=== PATIENT | male | born 1995 ===

== ENCOUNTER 2020-05-27 12:40 | Outpatient (CLI) | payer OTHER ==
[2020-05-27 13:38] VITALS: BP 106/69
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
== END 2020-05-27 12:41 | disposition home or self-care (01) ==
LOC: SC 12:40
PROVIDERS: ATTEND Nurse Practitioner Family
DX: R06.83 Snoring (principal); G47.8 Other sleep disorders; R41.89 Other symptoms and signs involving cognitive functions and awareness; G47.10 Hypersomnia, unspecified; E66.9 Obesity, unspecified; Z68.32 Body mass index [BMI] 32.0-32.9, adult
CPT/HCPCS: 99203; 99212

== ENCOUNTER 2020-06-14 07:43 | Outpatient (CLI) | payer OTHER | END 2020-06-14 07:44 | disposition home or self-care (01) | LOC: SC 07:43 | PROVIDERS: ATTEND Nurse Practitioner Family | DX: G47.33 Obstructive sleep apnea (adult) (pediatric) (principal); E66.9 Obesity, unspecified; Z68.32 Body mass index [BMI] 32.0-32.9, adult | CPT/HCPCS: 95806 ==

== ENCOUNTER 2020-06-16 07:42 | Outpatient (CLI) | payer OTHER ==
--- NOTE | 2020-06-16 08:12 | SLEEP CARE CONSULTATION ---
Information from patient questionnaire entered by Sherry Doshi. I have reviewed and concur with the information entered by Sherry Doshi. This document represents the service I personally performed and the decisions made by , Lisseth Chaudhary ARNP. History of Present Illness Service Date and Time: 06/16/2020 0742 Initial [place] Sleepiness Scale score: 14 (in 2020) Current [place] Sleepiness Scale score: 12 Additional HPI information: EMILY MCKEON returns for follow up and results of the recently performed home sleep study. He was found to have mild obstructive sleep apnea with an average AHI of 8.5 and aileen or 89%. I explained the pathophysiology behind obstructive sleep apnea. We then spent quite a bit of time discussing different treatment options. For mild obstructive sleep apnea, surgery and oral appliance are alternatives to nasal CPAP therapy but in moderate or severe cases, nasal CPAP is the most effective and reliable treatment. Because apnea is primarily in supine position, then positional management therapy could be effective. Methods discussed such as positioning with pillows, using a T-shirt with tennis balls in the back, and shown commercial products that have a pillow format on back to prevent supine sleep. I reviewed the impact of weight changes on sleep apnea and strongly recommended losing weight. After some discussion, the patient opted to go with the nasal CPAP therapy. Nasal autoCPAP set at 4-15 cmH20 will be ordered with rationale explained. A manual titration study will be ordered if unable to find optimal pressure with office adjustments. I explained how CPAP machine works with sample devices [employer] Dreamstation and [id number] and what to expect when using the machine. Using CPAP every night in order to get used to it was emphasized. Patient advised to put CPAP mask on before getting into bed so as not to fall asleep without CPAP. To assist acclimation to CPAP use, it could also be used for a short time during day while reading or watching TV. The patient was instructed to call the CPAP supplier to discuss any mechanical problem that may occur. If the mask given is uncomfortable or is difficult to keep on through the night even with adjustment, contact the CPAP supplier as many will replace with another mask style if notified before 30 days. If snoring or perceives is not getting enough air or too much air from the machine, notify this office. [facility]AS patient education PAP tips reviewed and given to patient. Patient does not drink alcohol. Patient was cautioned about risks of drowsy driving until sleepiness symptoms resolve. Sleep Study - Results Type of Sleep Study: Home sleep study Prior sleep studies: No Polysomnography/Home Sleep Study results: Physician Impression: The quality of the study is good. The length of the study is adequate (> 240 minutes). Please also see the tabulated and graphic data. 1. Obstructive Sleep Apnea-Hypopnea (ICD-10 G47.33), mild, with an AHI of 8.5/hr and aileen SaO2 of 89%. During the study, the patient had 29 apneas (29 obstructive, 0 central, 0 mixed) and 51 hypopneas. The longest episode lasted 58.5 seconds. The respiratory events occurred more frequently during supine sleep (supine AHI was 21.6 and non-supine, 6.66). 2. Hypoxemia (ICD-10 R09.02), minimal, with the lowest oxygen saturation of 89 % and 0.3 minutes with SaO2 under 90%. Baseline oxygen saturation was normal (Average oxygen saturation was 95%). Allergies and Home Medications Drug allergies reviewed: Yes (NKDA) Home medication list reviewed: Yes (muscle relaxers, ibuprofen) Review of Systems Review of systems same as previous: Yes (no changes) Physical Exam Heart Rate: 75 O2 Saturation: 98 Height: 5 ft 10 in Weight: 221 lb Body Mass Index: 31.7 BMI Classification: Obese Impression and Plan 1. Obstructive Sleep Apnea-Hypopnea Syndrome, mild, with lowest oxygen saturation of 89%. Obviously this is the cause of the patients symptoms of unrefreshed sleep, and excessive daytime sleepiness. Positive pressure therapy could benefit his overall health and reduce risks for cardiovascular or cerebrovascular adverse events. As mentioned above, the patient will be started on nasal autoCPAP therapy with pressure set at 4-15 cmH2O. A manual titration study will be completed if unable to find optimal treatment pressure with office adjustments. Compliance guidelines also reviewed. A copy of compliance guidelines will be given for reference at check out. Because the apnea is more severe supine, I instructed to avoid sleeping supine using pillow positioning until able to start CPAP use. * Nasal auto CPAP therapy, pressure at 4-15 cm H2O. * Attempt to lose weight. * Avoid supine sleep until using CPAP. * The patient is again cautioned about driving until sleepiness completely resolves. * Return one month after CPAP obtained. I will assess response to therapy and compliance at that time. Counseling Topics: Weight loss health impact Visit Type: In Office Time Spent with Patient (minutes): 20 Provider Statement: I spent 100% of the Face to Face Visit with the patient with greater than 50% spent counseling the patient and coordination of care.
== END 2020-06-16 07:43 | disposition home or self-care (01) ==
LOC: SC 07:42
PROVIDERS: ATTEND Nurse Practitioner Family
DX: G47.33 Obstructive sleep apnea (adult) (pediatric) (principal); E66.9 Obesity, unspecified; Z68.31 Body mass index [BMI] 31.0-31.9, adult
CPT/HCPCS: 99212; 99213

== ENCOUNTER 2020-08-17 10:12 | Outpatient (CLI) | payer OTHER ==
--- NOTE | 2020-08-17 10:59 | SLEEP CARE CONSULTATION ---
Information from patient questionnaire entered by Sherry Doshi. I have reviewed and concur with the information entered by Sherry Doshi. This document represents the service I personally performed and the decisions made by , Lisseth Chaudhary ARNP. History of Present Illness Service Date and Time: 08/17/2020 1012 Previous diagnosis: Mild, Obstructive Sleep Apnea-Hypopnea Syndrome AHI: 8.5 (in 2020) Reason for follow up: first compliance Equipment type: CPAP Equipment obtained from: [employer] (got initial supplies) Mask style: Nasal Backup mask available: Yes (extra masks) Last cushion change: 2 weeks Prior sleep studies: Yes Year and Where: 2020 - [facility] Type of Sleep Study: Home sleep study HPI additional information: PARISH MCKEON was diagnosed to have mild, AHI 8.5, obstructive sleep apnea- hypopnea syndrome and returned today for CPAP therapy first compliance follow- up. CPAP Compliance Data - Data Reviewed with Patient Average duration of nightly device use: 6 hr 34 min Compliance rate %: 96.7 Current pressure setting (cmH2O): 4-15 (mean 5.5, 90% avg 7.8) Humidity settin Heated hose settin Average residual AHI: 2.5 Average large leak: 0 Subjective Missed days of use due to: reports: mask issues, other Patient concerns: reports: mask discomfort (sore under his right nare), dry m outh, nose, throat (dry nose), other (skin acne under nares). denies: aerophagia, air blowing in eyes, mask leak noise, condensation in mask/hose, nasal congestion, epistaxis Observed to snore while using device: No Current pressure setting perceived as: comfortable On therapy, patient: reports: sleeping better, awakening more refreshed, being more awake and alert during the day, more rested overall. denies: drowsiness while driving Initial [place] Sleepiness Scale score: 14 (in 2020) Current [place] Sleepiness Scale score: 8 Allergies and Home Medications Home medication list reviewed: Yes (no new meds) Review of Systems Review of systems same as previous: Yes (no changes) Physical Exam Heart Rate: 79 O2 Saturation: 98 Height: 5 ft 10 in Weight: 225 lb Body Mass Index: 32.3 BMI Classification: Obese Impression and Plan 1. Obstructive Sleep Apnea-Hypopnea Syndrome, mild, with good treatment compliance and good apnea control. On CPAP therapy, the patient has better sleep quality and is more rested overall. Parish has been having some mask discomfort from the nasal cushion mask and would like to try a full face style. He is getting some dry nose passages, skin acne around nose and had a sore develop under the right nare. It has healed up now but did limit use for a couple of nights. He has tried to increase the humidity with limited improvement of his nasal dryness. I will have them do a mask refitting for a full face mask and we discussed use of the humidity and heated hose for nasal dryness. Nasal dryness can be reduced with increasing the CPAP humidity as shown on sample device and the heated hose can be increased if condensation. I will adjust his pressure to reflect pressure being used to 5-8 cmH2O. He is very happy with treatment thus far. He was encouraged to work on weight loss. He has a 2 week old infant. Patient's apnea severity and rationale for treatment to reduce apnea, improve sleep quality and reduce cardiovascular and cerebrovascular events was reviewed. * Mask refitting for full face mask * Changeauto CPAP pressure to 5-8 cmH2O * Notify me if snoring with mask or feeling that the pressure is too much or too little * Attempt to lose weight * Call this office if any problems using CPAP * Return for follow up in 1-2 months, or sooner if concerns arise Counseling Topics: Spare mask, Weight loss health impact Visit Type: In Office Time Spent with Patient (minutes): 23 Provider Statement: I spent 100% of the Face to Face Visit with the patient with greater than 50% spent counseling the patient and coordination of care.
== END 2020-08-17 10:13 | disposition home or self-care (01) ==
LOC: SC 10:12
PROVIDERS: ATTEND Nurse Practitioner Family
DX: G47.33 Obstructive sleep apnea (adult) (pediatric) (principal); E66.9 Obesity, unspecified; Z68.32 Body mass index [BMI] 32.0-32.9, adult
CPT/HCPCS: 99212; 99213

== ENCOUNTER 2020-09-17 07:51 | Outpatient (CLI) | payer OTHER ==
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
== END 2020-09-17 07:52 | disposition home or self-care (01) ==
LOC: SC 07:51
PROVIDERS: ATTEND Nurse Practitioner Family
DX: G47.33 Obstructive sleep apnea (adult) (pediatric) (principal); E66.9 Obesity, unspecified; Z68.30 Body mass index [BMI] 30.0-30.9, adult
CPT/HCPCS: 99212

== ENCOUNTER 2020-12-24 10:08 | Outpatient (CLI) | payer OTHER ==
--- NOTE | 2020-12-24 11:10 | SLEEP CARE CONSULTATION ---
Information from patient questionnaire entered by Urvashi Martin. I have reviewed and concur with the information entered by Urvashi Martin. This document represents the service I personally performed and the decisions made by , Lisseth Chaudhary ARNP. History of Present Illness Service Date and Time: 12/24/2020 1008 Previous diagnosis: Mild, Obstructive Sleep Apnea-Hypopnea Syndrome AHI: 8.5 Reason for follow up: three month (pressure change and CPAP recall) Equipment type: CPAP Equipment obtained from: [employer] (very hard to get ahold this LIA, no call backs to his phone call) Mask style: Nasal Backup mask available: Yes (old mask) Last cushion change: 3 weeks Prior sleep studies: Yes Year and Where: 2020 - [facility] Type of Sleep Study: Home sleep study HPI additional information: EMILY MCKEON was diagnosed to have mild, AHI 8.5, obstructive sleep apnea- hypopnea syndrome and returned today for CPAP therapy three month with pressure change follow-up. Sleep Study - Results Type of Sleep Study: Home sleep study Prior sleep studies: Yes Year and Where: 2020 - [facility] CPAP Compliance Data - Data Reviewed with Patient Average duration of nightly device use: 6 hours 25 minutes Compliance rate %: 77.8 Current pressure setting (cmH2O): 5-8 Heated hose settin Average residual AHI: 1.9 Average large leak: 10 second Subjective Patient concerns: reports: dry mouth, nose, throat (dry nose; he does not like using the humidifier, turned off), other (discuss CPAP recall). denies: aerophagia, mask discomfort, air blowing in eyes, mask leak noise, condensation in mask/hose, nasal congestion, epistaxis Observed to snore while using device: No Current pressure setting perceived as: too low On therapy, patient: reports: sleeping better, awakening more refreshed, being more awake and alert during the day, more rested overall. denies: drowsiness while driving Initial [place] Sleepiness Scale score: 14 (in 2020) Current [place] Sleepiness Scale score: 13 Allergies and Home Medications Home medication list reviewed: Yes (no changes) Review of Systems Review of systems same as previous: Yes (no changes) Physical Exam Blood Pressure: 118/69 Cuff size: wrist Heart Rate: 80 O2 Saturation: 98 Height: 5 ft 10 in Weight: 223 lb Body Mass Index: 32.0 BMI Classification: Obese Impression and Plan 1. Obstructive Sleep Apnea-Hypopnea Syndrome, mild, with good treatment complia nce and good apnea control. On CPAP therapy, the patient has better sleep quality and is more rested overall. Patient has a Dreamstation. He has insurance which will support getting a replacement device for his SARAH. Patient was encouraged to register their device online with [employer] for the recall to see if their device is affected. If their device is affected they should start a claim. Patient denies any black particles seen in machine or hoses, any unusual odors coming from device. Patient has not experienced any physical symptoms such as upper airway irritation, headache, skin or eye irritation, asthma, nausea/vomiting, difficulty breathing or chest pain. Patient informed that they may use an inline CPAP filter that they can obtain online to reduce chance of any particles being inhaled or ingested. We discussed thoroughly the health risks of not using the CPAP versus continuing use with the filter in place. If patient is not able to sleep due to waking up choking, gasping for air or other respiratory distress that they may decide to continue using it until it is either replaced or repaired. Patient voiced understanding and agreement with plan. He has been having dry nose with dry mucus with use. He does not like using the humidifier. Nasal dryness can be reduced with increasing the CPAP humidity as shown on sample device and the heated hose can be increased if condensation. In addition, I gave the patient a few samples of Xu Ease nasal cream to be used 4 times a day for 7-10 days and then as needed. Printed information given about the product and how to obtain more. Patient's apnea severity and rationale for treatment to reduce apnea, improve sleep quality and reduce cardiovascular and cerebrovascular events was reviewed. Patient was encouraged to lose weight for their overall health and to reduce apneas. * Change auto CPAP pressure to 6-8 cmH2O * Replacement device for recalled machine ordered, insurance * Notify me if snoring with mask or feeling that the pressure is too much or too little * Attempt to lose weight * Call this office if any problems using CPAP * Return for follow up in 6 months, or sooner if concerns arise Counseling Topics: Spare mask, Weight loss health impact Visit Type: In Office Time Spent with Patient (minutes): 22 Provider Statement: I spent 100% of the Face to Face Visit with the patient with greater than 50% spent counseling the patient and coordination of care.
[2020-12-24 11:11] VITALS: BP 118/69
== END 2020-12-24 10:09 | disposition home or self-care (01) ==
LOC: SC 10:08
PROVIDERS: ATTEND Family Medicine
DX: G47.33 Obstructive sleep apnea (adult) (pediatric) (principal); E66.9 Obesity, unspecified; Z68.32 Body mass index [BMI] 32.0-32.9, adult
CPT/HCPCS: 99212; 99213

== ENCOUNTER 2021-03-11 12:41 | Outpatient (CLI) | payer OTHER ==
[2021-03-11 13:23] VITALS: BP 127/81
--- NOTE | 2021-03-11 13:23 | SLEEP CARE CONSULTATION ---
Information from patient questionnaire entered by Sha Teague MA. I have reviewed and concur with the information entered by Sha Teague MA. This document represents the service I personally performed and the decisions made by , Lisseth Chaudhary ARNP. History of Present Illness Service Date and Time: 03/11/2021 1241 Previous diagnosis: Mild, Obstructive Sleep Apnea-Hypopnea Syndrome AHI: 8.5 Reason for follow up: other (TWO MONTH F/U VISIT) Equipment type: CPAP Equipment obtained from: [employer] (has not gotten supplies yet, has changed his address with them and not heard back yet) Mask style: Nasal Backup mask available: Yes (other mask) Last cushion change: 2 weeks Prior sleep studies: Yes Year and Where: 2020 - [facility] Type of Sleep Study: Home sleep study HPI additional information: EMILY MCKEON was diagnosed to have mild, AHI 8.5, obstructive sleep apnea- hypopnea syndrome and returned today for CPAP therapy two month follow-up. Sleep Study - Results Type of Sleep Study: Home sleep study Prior sleep studies: Yes Year and Where: 2020 - [facility] Compliance Data - Data Reviewed with Patient Average duration of nightly device use: 6 hours 26 minutes Compliance rate %: 70 Current pressure setting (cmH2O): 6-8 Humidity setting: off Heated hose settin Average residual AHI: 1.9 Average large leak: 6 seconds Subjective Patient concerns: reports: mask discomfort, dry mouth, nose, throat (dry nose), other (blood in mucus). denies: aerophagia, air blowing in eyes, mask leak noise, condensation in mask/hose, nasal congestion, epistaxis Observed to snore while using device: No Current pressure setting perceived as: comfortable On therapy, patient: reports: sleeping better, awakening more refreshed, being more awake and alert during the day, more rested overall. denies: drowsiness while driving Initial Lynn Sleepiness Scale score: 14 (in 2020) Current Lynn Sleepiness Scale score: 16 (IN 2020) Allergies and Home Medications Home medication list reviewed: Yes (naproxen, flexeril) Review of Systems Review of systems same as previous: Yes (compressed discs in lumbar spine) Physical Exam Vital signs obtained and entered by: Ramon TEAGUE CMA [facility] Blood Pressure: 127/81 (LEFT) Cuff size: wrist Heart Rate: 80 O2 Saturation: 98 (WITH MASK) Height: 5 ft 10 in Weight: 219 lb (WITH BOOTS, AND UNIFORM) Body Mass Index: 31.4 BMI Classification: Obese Impression and Plan 1. Obstructive Sleep Apnea-Hypopnea Syndrome, mild, with good treatment compliance and good apnea control. On CPAP therapy, the patient has better sleep quality and is more rested overall. Patient states he does not use the humidifier because it drys out the skin on his face and causes skin irritation. He turned up the heated hose due to nasal congestion. He now has some nasal dryness and has had some blood in his mucus. He was given samples of nasal moisturizer at his last visit but he forgot to keep using it. I encouraged him to put in nostrils 4 times a day for a week and then use as needed to reduce nasal dryness and minimal epistaxis. He voiced understanding. He has not been able to talk to someone at [facility] yet about ordering supplies. He would like to try a full face mask to see if it is more comfortable. I will write for a mask refitting for full face mask and update of supplies as needed. He will continue to try to connect with the DME for supplies and mask refitting. Patient's apnea severity and rationale for treatment to reduce apnea, improve sleep quality and reduce cardiovascular and cerebrovascular events was reviewed. Patient was encouraged to lose weight for their overall health and to reduce apneas. Patient was encouraged to lose weight for their overall health and to reduce apneas. * Continue auto CPAP pressure at 6-8 cmH2O * Mask refitting for full face mask * Notify me if snoring with mask or feeling that the pressure is too much or too little * Attempt to lose weight * Call this office if any problems using CPAP * Return for follow up in 6 months, or sooner if concerns arise Counseling Topics: Spare mask, Weight loss health impact Visit Type: In Office Time Spent with Patient (minutes): 20 Provider Statement: I spent 100% of the Face to Face Visit with the patient with greater than 50% spent counseling the patient and coordination of care.
== END 2021-03-11 12:42 | disposition home or self-care (01) ==
LOC: SC 12:41
PROVIDERS: ATTEND Nurse Practitioner Family
DX: G47.33 Obstructive sleep apnea (adult) (pediatric) (principal); E66.9 Obesity, unspecified; Z68.31 Body mass index [BMI] 31.0-31.9, adult
CPT/HCPCS: 99212; 99213

== ENCOUNTER 2021-03-22 10:03 | Outpatient (CLI) | payer OTHER ==
--- NOTE | 2021-03-22 11:46 | MRI Report ---
PROCEDURE: Lumbar Spine W/O INDICATIONS: Low back pain TECHNIQUE: Noncontrast sagittal T1 spin echo and T2 fast echo, sagittal STIR, axial T1 and T2 fast spin echo thr ough the lumbar spine. In cases with scoliosis, additional coronal T2 fast spin echo may be performe d. COMPARISON: None. FINDINGS: Image quality: Excellent. Alignment and Curvature: Straightening of the usual lumbar lordosis. Otherwise normal alignment. Vert ebral body heights maintained. Bone Marrow: No suspicious focal marrow signal abnormality or bone marrow edema. Spinal Cord: Normal position and appearance of the conus. Regional Soft Tissues: Prevertebral and paraspinous soft tissues are normal. The included unenhanced retroperitoneal visceral structures demonstrate no acute abnormality. T12-L1: No spinal canal or neural foraminal stenosis. No significant degenerative changes. L1-L2: No spinal canal or neural foraminal stenosis. No significant degenerative changes. L2-L3: No spinal canal or neural foraminal stenosis. No significant degenerative changes. L3-L4: No spinal canal or neural foraminal stenosis. No significant degenerative changes. L4-L5: No spinal canal or neural foraminal stenosis. No significant degenerative changes. L5-S1: Disc desiccation and disc height loss. Disc bulge flattens the ventral thecal sac and mildly d isplaces the descending S1 nerve roots within both subarticular zones (series 601 image 7). No neural foraminal stenosis. IMPRESSION: Mild degenerative changes at L5-S1 with diffuse disc bulge displacing the descending S1 nerve roots i n the subarticular zones. Correlate for any corresponding S1 radicular symptoms. Reviewed by: Tristan Yanes MD on 03/22/2021 11:45 AM PST Approved by: Tristan Yanes MD on 03/22/2021 11:45 AM PST Station ID: [id number]
== END 2021-03-22 10:04 | disposition home or self-care (01) ==
LOC: DI 10:03
PROVIDERS: ATTEND Nurse Practitioner Family
DX: M51.17 Intervertebral disc disorders with radiculopathy, lumbosacral region (principal)

== ENCOUNTER 2021-04-21 07:41 | Outpatient (CLI) | payer OTHER ==
--- NOTE | 2021-04-22 21:19 | XRAY Report ---
PROCEDURE: Knee 4 View LT INDICATIONS: LEFT KNEE PAIN TECHNIQUE: 4 views of the left knee(s) were acquired. COMPARISON: None. FINDINGS: Bones: No fractures or dislocations. Osteoarthritic changes involving bilateral proximal tibiofibul ar joint is seen. Rest of the knee joint spaces are well preserved. No patellar subluxation. No suspi cious bony lesions. Soft tissues: No joint effusion. Well-corticated calcifications are noted anterior to the tibial tub erosity at distal patellar tendon insertion. IMPRESSION: 1. Osteoarthritic changes involving bilateral proximal tibiofibular joint slightly worse on the right side which may indicate congenital process versus old injury. 2. Suggestion of old injury involving distal patellar tendon at its anterior tibial insertion. No acu te fracture or dislocation. No significant joint effusion. Reviewed by: Victor M Norton MD on 04/22/2021 9:17 PM PST Approved by: Victor M Norton MD on 04/22/2021 9:17 PM PST Station ID: [id number]
== END 2021-04-21 07:42 | disposition home or self-care (01) ==
LOC: DI.WOS 07:41
PROVIDERS: ATTEND Orthopaedic Surgery
DX: M17.12 Unilateral primary osteoarthritis, left knee (principal)